=== PATIENT | male | born 1960 | race Caucasian/White ===

== ENCOUNTER → 2016-07-26 08:35 | Emergency (ER) | payer BC ==
[~2016-07-26 08:35] MED LIST: AUGMENTIN PO; HYDROCODONE PO; LORTAB 7.5-5001 TAB PO; ULTRAM PO; VICODIN 5/500 T1 TAB PO
== END | disposition home or self-care (01) ==
LOC: SED 08:35
DX: S61.442A Puncture wound with foreign body of left hand, initial encounter (principal); F17.210 Nicotine dependence, cigarettes, uncomplicated; Z79.899 Other long term (current) drug therapy; Z23 Encounter for immunization; W54.0XXA Bitten by dog, initial encounter; Y92.009 Unspecified place in unspecified non-institutional (private) residence as the place of occurrence of the external cause
CPT/HCPCS: 90471; 90715; 99283

== ENCOUNTER 2016-12-15 18:41 | Emergency (ER) | payer BC ==
[~2016-12-15] VITALS: Ht 172.7 cm; Wt 68.0 kg
== END 2016-12-15 18:50 | disposition left against medical advice (07) ==
LOC: CED 18:41
DX: Z53.21 Procedure and treatment not carried out due to patient leaving prior to being seen by health care provider (principal)

== ENCOUNTER 2016-12-18 11:32 | Emergency (ER) | payer BC ==
[~2016-12-18] VITALS: Ht 172.7 cm; Wt 70.3 kg
== END 2016-12-18 12:27 | disposition home or self-care (01) ==
LOC: CFTX 11:32 → CED 11:32 → CFTX 12:27
DX: L03.113 Cellulitis of right upper limb (principal); F17.210 Nicotine dependence, cigarettes, uncomplicated
CPT/HCPCS: 99283